=== PATIENT | female | born 1990 | race Hispanic/Latino ===

== ENCOUNTER 2016-10-17 16:14 | Emergency (ER) | payer OTHER ==
[2016-10-17 16:23] VITALS: BP 119/74; TEMP 98.7
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
--- NOTE | 2016-10-17 17:30 | RAD ---
PROCEDURE: Cervical Spine Radiographs. Multiple views of the cervical spine performed. Note that the examination is somewhat limited due to partial obscuration of the odontoid by overlying incisor teeth and occiput in the open-mouth projection. HISTORY: Pain. COMPARISON: None. FINDINGS: BONES: No acute compression fractures no retropulsed fragments seen within limitation of the study. Vertebral bodies exhibit normal stature. There is very slight kyphotic angulation centered at the C5-C6 level with straightening of the normal cervical lordosis above and below this level. DISC SPACES: Disc space heights maintained. Right exit foramina are adequate. Left exit foramina are poorly seen due to shallow oblique patient positioning however also appear patent SOFT TISSUES: Prevertebral soft tissues unremarkable. OTHER FINDINGS: None. IMPRESSION: No acute compression fractures no retropulsed fragments seen within limitation of the study. Vertebral bodies exhibit normal stature. There is very slight kyphotic angulation centered at the C5-C6 level with straightening of the normal cervical lordosis above and below this level
[2016-10-17 17:51] VITALS: PULSE 77; RESP 17; O2SAT 97
--- NOTE | 2016-10-18 14:43 | RAD ---
Indication: Pain Right scapula radiographs Comparison: None available Findings: No acute displaced fracture. No dislocation. Soft tissues appear marker. No evidence of radiopaque foreign body. Included portions of the distal clavicle and ribs appear intact. Impression: No acute displaced fracture or dislocation identified. If symptoms persist or if there is continued clinical concern, x-ray follow-up in 7-10 days should be considered.
== END 2016-10-17 17:54 | disposition home or self-care (01) ==
LOC: H.ER 16:14
DX: M54.9 Dorsalgia, unspecified (principal); M54.2 Cervicalgia; V43.62XA Car passenger injured in collision with other type car in traffic accident, initial encounter; Y92.410 Unspecified street and highway as the place of occurrence of the external cause